=== PATIENT | male | born 1950 | race Caucasian/White ===

== ENCOUNTER 2021-10-26 05:54 | Emergency (ER) | payer OTHER ==
[~2021-10-26] VITALS: Ht 167.6 cm; Wt 77.1 kg
[2021-10-26 08:05] LABS: BASOPHIL 0.1 % (0-2); EOSINOPHIL 0.9 % (0-7); HCT 47.4 % (42.0-52.0); HGB 16.2 g/dl (13.2-18.0); LYMPHOCYTE 11.4 % (15-48); MCH 29.8 pg (25.0-31.0); MCHC 34.2 g/dL (32.0-36.0); MCV 87.1 fL (78.0-100.0); MONOCYTE 7.5 % (0-12); MPV 10.1 fL (6.0-9.5); NEUTROPHIL 79.6 % (41-80); NRBC 0; PLT 180 K/uL (150-400); RBC 5.44 M/uL (4.70-6.00); RDW 13.6 % (11.5-14.0); WBC 7.5 K/uL (4.0-10.5)
[2021-10-26 08:26] LABS: ALBUMIN 3.8 g/dL (3.4-5.0); ALKALINE PHOSHATASE 80 U/L (46-116); ALT 14 U/L (16-63); AST 32 U/L (15-37); BILIRUBIN - TOTAL 0.8 mg/dL (0.2-1.0); BUN 20 mg/dL (7-18); C-REACTIVE PROTEIN <0.20 mg/dL (<=0.90); CHLORIDE 101 mmol/L (98-107); CO2 (BICARBONATE) 24 mmol/L (21-32); CREATININE 1.05 mg/dL (0.67-1.17); GLOBULIN (CALCULATION) 4.1 g/dL; GLUCOSE 92 mg/dL (74-106); MAGNESIUM 1.6 mg/dL (1.8-2.4); POTASSIUM 3.9 mmol/L (3.5-5.1); TOTAL PROTEIN 7.9 g/dL (6.4-8.2)
[2021-10-26 08:27] LABS: LACTIC ACID 1.3 mmol/L (0.4-1.9)
[2021-10-26 09:45] LABS: INFLUENZA A NAA NEGATIVE (NEGATIVE)
[2021-10-26 09:48] LABS: CORONAVIRUS 2019 SARS-COV-2 POSITIVE (NEGATIVE)
[2021-10-26] MEDS ORDERED: VENTOLIN HFA18 GM INH (11:08)
[2021-10-26] MEDS ORDERED: ONDANSETRON ODT4 MG PO (11:08)
[2021-10-26] MEDS ORDERED: NAPROXEN SODIU275 MG PO (11:08)
== END 2021-10-26 11:55 | disposition home or self-care (01) ==
LOC: FER 05:54
PROVIDERS: Emergency Medicine
DX: U07.1 COVID-19 (principal); Z79.82 Long term (current) use of aspirin
CPT/HCPCS: 36415; 36600; 71260; 80053; 82728; 82803; 83605; 83735; 83880; 84145; 85025; 86140; 93005; 94640; 94664; J1100; J1170; J2405; J3475; J7030; Q9967; U0002